=== PATIENT | male | born 1995 | race Two or more races ===

== ENCOUNTER → 2024-05-07 | Outpatient (CLI) | payer MEDICAID, SELFPAY ==
--- NOTE | 2024-05-07 15:30 | XR_ITS ---
Examination: Testicular sonography complete TECHNIQUE: Grayscale sonographic images testes with assessment arterial inflow venous outflow Doppler spectral analysis carful analysis Exam date and time: May 07, 2024 1556 hours INDICATIONS: Palpable lump in the right testicle note is beginning 3 months ago. FINDINGS: Right testis 5.4 x 2.5 x 3.8 cm Epididymis 12 mm Arterial flow to the testicle. No testicular mass Mild varicocele Minimal hydrocele Left testis 5.0 x 2.5 x 3.5 cm Epididymis 15 mm Arterial flow testicle. No testicular mass Mild varicocele Mild hydrocele IMPRESSION: No testicular torsion or testicular mass Bilateral varicoceles,
== END | disposition home or self-care (01) ==
LOC: CDIM 15:03
PROVIDERS: PCP Physician Assistant; Referring Provider Physician Assistant; Visit Provider Physician Assistant
DX: I86.1 Scrotal varices (principal)
CPT/HCPCS: 76870

== ENCOUNTER 2025-02-02 10:20 | Emergency (ER) | payer MEDICAID, SELFPAY ==
[2025-02-02 10:20] VITALS: BMI 33.0
[2025-02-02 10:26] VITALS: BP 141/91; PULSE 88; RESP 16; TEMP 36.7; O2SAT 97
[2025-02-02] MEDS: IBUPROFEN TAB 400 MG TABLET 800 MG PO (10:47)
--- NOTE | 2025-02-02 10:48 | EDNOTE_ITS ---
<Statement entered by Avelina Desai MD - 02/17/25 14:16> As co-signing physician, I was present and available for consult prn. I concur with the plan and care as documented by the midlevel provider. Lower Extremity Injury RME/HPI General Chief Complaint: Ankle/Foot Injury Stated Complaint: R ANKLE SPRAIN X9 DAYS Time Seen by Provider: 02/02/25 10:33 Arrival date/time: 02/02/25 10:20 This is a 29-year-old male that comes into the emergency room with complaints of right ankle pain. Patient states that he thinks he stepped wrong out of the car and started having ankle pain laterally and medially. Patient has some mild swelling. Patient denies any other trauma. Related Data Previous Rx's ?Medication ?Instructions ?Recorded ibuprofen 800 mg tablet 800 mg PO TID PRN pain #30 t abs 04/26/22 ibuprofen 800 mg tablet 800 mg PO Q6H PRN pain #14 t abs 02/02/25 Allergies Allergy/AdvReac Type Severity Reaction Status Date / Time No Known Allergies Allergy Verified 02/02/25 10:23 Review of Systems Review of Systems Systems Reviewed: All systems reviewed, normal except as documented Past Medical History Past Medical History CARDIAC: Negative Congestive Heart Failure RESPIRATORY: Negative Chronic Obstructive Pulmonary Disease (COPD) GENITOURINARY: Negative Renal Disease ENDOCRINE: Negative Diabetes Mellitus Type 1 or Diabetes Mellitus Type 2 Social History SMOKING STATUS: Current every day smoker ED Exam Narrative Physical exam: VITAL SIGNS: Reviewed. GENERAL APPEARANCE: Alert and interactive, follows commands, no acute distress HEAD AND FACE: Non-traumatic. ENT: PERRL, conjuctiva pink and clear, eyelid no trauma, Mucous membrane moist. NECK: Supple, nontender, no nuchal rigidity. CHEST: No tenderness, no crepitus, no paradoxical movement, no retractions. LUNGS: breathing even and unlabored HEART: Regular rate, cap refill less than 2 seconds ABDOMEN: Soft, nondistended, no guarding, nontender, no rebound, no masses, NEUROLOGICAL: Gross motor function intact sensory function intact, Appropriate for age. MUSCULOSKELETAL: low back nontender, full range of motion. EXTREMITIES: Mild edema to medial and lateral ankle pain to palpation, no erythema. Distal neurovascular status intact bilateral foot SKIN: Color pink, dry Course Quality Measures none Orders Category Date Time Status XR ankle comp RT min 3V Stat Exams 02/02/25 10:50 Completed XR foot comp RT min 3V Stat Exams 02/02/25 10:50 Completed HYDROcodone*/APAP 5/325 [Lampe 5/325] Med 02/02/25 11:36 Discontinued 1 tab PO X1 ONE Ibuprofen Tab [Motrin Tab] Med 02/02/25 10:44 Discontinued 800 mg PO X1 ONE Metoclopramide [Reglan] Med 02/02/25 11:36 Discontinued 10 mg PO X1 ONE Vital Signs Vital signs: Vital Signs Temperature 98.1 F 02/02/25 10:26 Pulse Rate 88 02/02/25 10:26 Respiratory Rate 16 02/02/25 10: Blood Pressure 141/91 H 02/02/25 10:26 Pulse Oximetry (%) 97 02/02/25 10:26 Oxygen Delivery Method Room Air 02/02/25 10:26 Extremity Injury, Lower MDM Narrative MDM Narrative:: ankle : FINDINGS: No acute fracture No ankle dislocation IMPRESSION: No acute fracture foot x ray: FINDINGS: No acute fracture. No dislocation. No foreign body IMPRESSION: No acute fracture Today patient had xrays. There was no acute fracture seen. Exam appeared unremarkable. I explained to patient at length that if there was continued pain to this area or worsened to come back to ED or see primary provider for more xrays or further testing such as CT scan or MRI. X rays are not perfect and sometimes serial films needed. Patient verbalized understanding. Patient states they will follow up with primary provider in 1-2 days or come back to ED if symptoms change or worsen. Patient data External records reviewed:: [facility] previous records Clinical information provided by:: patient Social determinants that could affect healthcare access:: none Patient has the following chronic illnesses:: See note How is presenting disease/condition affected by chronic disease/condition?: no chronic disease Evaluation data The following diagnostics were reviewed and interpreted by me:: radiology exam(s) Lab and/or radiology exams considered but not ordered:: None Interpretation Summary: See note Medications / Prescriptions Medications or Prescriptions considered but not ordered:: None Medication administrations:: Medication Administration History Discontinued Medications Hydrocodone Bitart/Acetaminophen (Hydrocodone/Apap 5/325 Tablet) 1 tab PO X1 ONE Stop: 02/02/25 11:37 Last Admin: 02/02/25 11:44 Dose: 1 tab Documented By: [facility] Ibuprofen (Ibuprofen Tab 400 Mg Tablet) 800 mg PO X1 ONE Stop: 02/02/25 10:45 Last Admin: 02/02/25 10:47 Dose: 800 mg Documented By: IWONA Metoclopramide HCl (Metoclopramide 5 Mg Tablet) 10 mg PO X1 ONE Stop: 02/02/25 11:37 Last Admin: 02/02/25 11:43 Dose: 10 mg Documented By: IWONA See MAR Consultations Consultation(s) initiated? (list below): No Diagnosis Most likely diagnosis given after review of the tests above:: Ankle contusion Admission Indicated Admission indicated?: not indicated Admission Request Was there a request for admission?: No Disposition Plan Disposition Plan: Discharge Discharge Attestation Discharge Attestation: The patient and all family members were given an opportunity to ask questions and understood the discharge instructions. Discharge instructions specifically effects, indications for sooner follow up or return to the emergency department, and the expected course of current diagnosis. Patient condition: Stable Discharge Plan Plan Patient Disposition: HOME (Self Care) Patient condition on transfer: Stable Prescriptions/Referrals Prescriptions/Med Rec: New ibuprofen 800 mg tablet 800 mg PO Q6H PRN (Reason: pain) Qty: 14 0RF No Action ibuprofen 800 mg tablet 800 mg PO TID PRN (Reason: pain) Qty: 30 0RF Problem List Clinical Impression: Ankle contusion Patient/Caregiver Discharge Instructions Discharge Activity: activity as tolerated Education Materials: Bruises (Contusions) Additional Instructions: Follow up with primary provider in 1-2 days. Come back to ED if symptoms change or worsen Print Language: Arabic Stand Alone Forms: Yoko Award Info., Patient Portal Info Letter KENDRICK/GISSEL Supervising Physician KENDRICK/GISSEL Supervising Physician: gauri
--- NOTE | 2025-02-02 10:50 | XR_ITS ---
EXAMINATION: Ankle, right 3 views. Technique: Ankle AP, oblique, lateral 3 views Date and time of exam: February 02, 2025, 10:40 a.m. INDICATIONS: Ground-level fall 4 days ago with injury to the ankle, ankle pain FINDINGS: No acute fracture No ankle dislocation IMPRESSION: No acute fracture
--- NOTE | 2025-02-02 10:50 | XR_ITS ---
Examination: Foot, right, 3 views Technique: AP, oblique, lateral views foot, 3 views Date and time of exam: February 02, 2025, 10:40 a.m. INDICATIONS: Patient fell 4 days ago with injury to the foot, foot pain. FINDINGS: No acute fracture. No dislocation. No foreign body IMPRESSION: No acute fracture
[2025-02-02] MEDS: METOCLOPRAMIDE 5 MG TABLET 10 MG PO (11:43)
[2025-02-02] MEDS: HYDROcodone/APAP 5/325 TABLET 1 TAB PO (11:44)
== END 2025-02-02 11:46 | disposition home or self-care (01) ==
PROVIDERS: Emergency Provider Emergency Medicine
DX: S93.401A Sprain of unspecified ligament of right ankle, initial encounter (principal); X50.0XXA Overexertion from strenuous movement or load, initial encounter
CPT/HCPCS: 73610; 73630; 99283; A9270

== ENCOUNTER 2025-04-08 09:25 | Outpatient (RCR) | payer MEDICAID, SELFPAY ==
--- NOTE | 2025-04-08 09:42 | PTNOTE_ITS ---
PT OP Initial Eval Patient Information Outpatient Physical Therapy Treatment Date: 04/08/25 Visit Reasons: RIGHT ANKLE PAIN Medical Diagnosis: M25.561 Treatment Dx #1: R ankle pain Start of Care: 04/08/25 Date of Onset: 01/2025 Smoking Status Smoking Status: Never smoker Initial Assessment Subjective: Pt is 29 yr old male s/p R ankle sprain in January reports ambulating with a limp due to pain slower than normal. Pain limits prolonged standing and moving the ankle due to stiffness. PMH: L knee sx 2010 Imaging: Xrays in EMR negative for FX of ankle Pt goal: to get rid of the pain and walk normal Objective: R ankle AROM: DF: neutral ?Plantarflexion: to 35 deg Inv/Eversion 10 deg with pain Strength: Ankle DF 3-/5, PF: 4-/5 Heel raise B slowly x3 with pain to 50% height TTP: moderate of lateral ankle, peroneal tendons Sensation: intact to light touch of R foot PROM: pain with forefoot PROM Assessment: Pt presentation consistent with referring Dx. Pt has limited ankle DF ROM ? and gastroc tightness with decreased ankle PF strength with heel raises. ? Pt has stiff forefoot and hindfoot PROM. Pt has L knee pain that ? contributes to antalgic gait pattern and painful WB on R foot. Pt requires skilled therapy and has fair rehab potential. Eval followed by HEP. Short Term and Paleobotanist Goals 1. Independent with HEP ? 2. Improved DF ROM to 8 deg and PF to 50 deg ? 3. Decreased TTP from mod to min of lateral ankle ? 4. Improved ambulatory distance to community distances with symmetrical gait pattern and normal gait speed Treatment Plan 1. Manual therapy ? 2. Therex ? 3. Modalities as indicated, moist heat, ice, TENS Frequency and Duration: 1-2x a week for 12 sessions plus the evaluation Certification Dates: 04/08/25 to 07/07/24 Procedure Charges OP PT Eval Mod Complex 30 minutes: Yes
== END 2025-04-17 23:59 | disposition home or self-care (01) ==
LOC: CPTX 09:25
PROVIDERS: PCP Nurse Practitioner Primary Care; Referring Provider Nurse Practitioner Primary Care; Visit Provider Nurse Practitioner Primary Care
DX: M25.571 Pain in right ankle and joints of right foot (principal); S93.401D Sprain of unspecified ligament of right ankle, subsequent encounter; X58.XXXD Exposure to other specified factors, subsequent encounter
CPT/HCPCS: 97162